=== PATIENT | male | born 1955 | race Caucasian/White ===

== ENCOUNTER 2018-10-09 13:30 | Outpatient (REF) | payer BC, SELFPAY ==
[2018-10-09 20:11] LABS: Anion Gap 9.3 mmol/L (3-11); BUN 12 mg/dL (7-18); CO2 26.7 mmol/L (21.0-32.0); CREATININE 1.04 mg/dL (0.70-1.30); Calcium 9.1 mg/dL (8.5-10.1); Chloride 106 mmol/L (98-107); Cholesterol 156 mg/dL (50-200); Glucose 91 mg/dL (70-100); HDL Cholesterol 66 mg/dL (40-60); LDL CHOLESTEROL 79 mg/dL (<100); Potassium 3.8 mmol/L (3.5-5.1); Sodium 142 mmol/L (136-145); Triglyceride 48 mg/dL (30-150)
== END 2018-10-09 13:50 ==
LOC: NCHCN 13:30
PROVIDERS: PCP Family Medicine; Visit Provider Family Medicine
DX: I10 Essential (primary) hypertension (principal); Z00.00 Encounter for general adult medical examination without abnormal findings
CPT/HCPCS: 80048; 80061; 83721

== ENCOUNTER 2018-10-30 09:23 | Outpatient (CLI) | payer BC, SELFPAY ==
--- NOTE | 2018-10-30 10:00 | DI.CTLCSR_ITS ---
SYMPTOM/DIAGNOSIS: TOBACCO DEPENDENCY, F17.209, SCREENING, [facility], Z00.00 LOW DOSE SCREENING CHEST CT: The study was carried out according to the usual protocol. There are emphysematous changes in the lungs. No infiltrate or mass is identified. There is no pleural effusion. There is nothing to suggest hilar or mediastinal adenopathy. The heart is not enlarged. Coronary artery calcification is demonstrated. There is no pericardial effusion. SUMMARY: There is evidence of COPD. No pulmonary nodule or mass is identified. Lung RADS, category 1. Routine follow up screening is recommended at annual intervals. Lung-RAD Category: Lung RADS Category 1- Negative
--- NOTE | 2018-10-30 10:30 | DI.US_ITS ---
SYMPTOMS/DIAGNOSIS: TOBACCO DEPENDENCY, F17.209, SCREENING FOR ABDOMINAL AORTIC ANEURYSM, [facility], Z00.00 LIMITED ABDOMINAL ULTRASOUND FOR EVALUATION OF THE ABDOMINAL AORTA: The proximal aorta measures 2.9 x 2.3 cm, the mid aorta 2.5 x 2.1 cm, the distal aorta 1.7 x 1.8 cm. The left iliac measures 1.6 x 1.1 cm, the right iliac 1.5 x 1.2 cm. The vena cava is normal. SUMMARY: No evidence of an aortic aneurysm.
== END 2018-10-30 09:43 ==
PROVIDERS: PCP Family Medicine; Visit Provider Family Medicine
DX: Z00.00 Encounter for general adult medical examination without abnormal findings (principal); Z12.2 Encounter for screening for malignant neoplasm of respiratory organs; F17.200 Nicotine dependence, unspecified, uncomplicated; Z13.6 Encounter for screening for cardiovascular disorders; J44.9 Chronic obstructive pulmonary disease, unspecified
CPT/HCPCS: 76706; G0297

== ENCOUNTER 2020-12-08 20:27 | Outpatient (REF) | payer MEDICARE, SELFPAY ==
[2020-12-08 20:39] LABS: Anion Gap 12.2 mmol/L (3-11); BUN 18 mg/dL (7-18); CO2 25.8 mmol/L (21.0-32.0); CREATININE 1.1 mg/dL (0.70-1.30); Calcium 9.7 mg/dL (8.5-10.1); Chloride 104 mmol/L (98-107); Glucose 112 mg/dL (74-106); Sodium 142 mmol/L (136-145)
== END 2020-12-08 20:28 | disposition home or self-care (01) ==
LOC: NCHCN 20:27
PROVIDERS: PCP Family Medicine; Visit Provider Family Medicine
DX: I10 Essential (primary) hypertension (principal)
CPT/HCPCS: 80048

== ENCOUNTER 2020-12-21 01:09 | Outpatient (CLI) | payer MEDICARE, SELFPAY ==
--- NOTE | 2020-12-21 11:00 | DI.CTLCSR_ITS ---
EXAM: CT CHEST LUNG CANCER SCREEN CLINICAL HISTORY: SCREENING FOR LUNG CA, CURRENT SMOKER, F17.210 TECHNIQUE: CT examination of the chest was performed utilizing low-dose lung cancer screening protoc ol. COMPARISON: CT CT CHEST LUNG CANCER SCREEN from 10/30/2018 FINDINGS: Images obtained through the upper abdomen show unremarkable appearance of visualized portions of the liver and spleen with an incidental calcified splenic granuloma.. There is no mediastinal or hilar adenopathy. Mediastinal vascular structures appear intact by noncon trast criteria. Note is made of coronary artery calcification. Tracheobronchial tree appears intact. No pleural effusion or pleural-based mass. The lungs are predominantly clear. There is an 8 millimeter in mean diameter well-circumscribed nodu le of the right upper lobe, no interval change in appearance comparison with prior CT of October. No additional new nodule identified. IMPRESSION: Stable 8 millimeter mean diameter right upper lobe pulmonary nodule. Lung RADS Cat 2 - Benign Appearance / Behavior: Nodules with a very low likelihood of becoming a clin ically active cancer due to size or lack of growth Continue annual screening with LDCTin 12 months. RADIATION DOSE DELIVERED: LINK-TO-SR Total DLP 125.78mGy.cm Total DLP RADIATION OPTIMIZATION: All CT scans at this facility use at least one of these dose optimization te chniques: automated exposure control; mA and/or kV adjustment per patient size (includes targeted exa ms where dose is matched to clinical indication); or iterative reconstruction.
== END 2020-12-21 01:29 ==
PROVIDERS: PCP Family Medicine; Visit Provider Family Medicine
DX: Z12.2 Encounter for screening for malignant neoplasm of respiratory organs (principal); F17.210 Nicotine dependence, cigarettes, uncomplicated; R91.1 Solitary pulmonary nodule
CPT/HCPCS: 71271

== ENCOUNTER 2022-11-07 14:50 | Outpatient (REF) | payer MEDICARE, SELFPAY ==
[2022-11-07 16:14] LABS: Hemoglobin A1C 5.9 % (<5.7)
[2022-11-07 18:35] LABS: Anion Gap 9.9 mmol/L (3-11); BUN 12 mg/dL (7-18); CO2 27.1 mmol/L (21.0-32.0); CREATININE 0.9 mg/dL (0.70-1.30); Calcium 9.6 mg/dL (8.5-10.1); Calculated LDL 93 mg/dL (<100); Chloride 105 mmol/L (98-107); Cholesterol 166 mg/dL (<200); Estimated GFR 92.45 (mL/min/1.73m2); Glucose 107 mg/dL (74-106); HDL Cholesterol 62 mg/dL (40-60); Potassium 3.6 mmol/L (3.5-5.1); Sodium 142 mmol/L (136-145); Triglyceride 59 mg/dL (<150)
== END 2022-11-07 14:51 | disposition home or self-care (01) ==
LOC: NCHCN 14:50
PROVIDERS: PCP Family Medicine; Visit Provider Family Medicine
DX: R73.03 Prediabetes (principal); Z00.00 Encounter for general adult medical examination without abnormal findings
CPT/HCPCS: 80048; 80061; 83036

== ENCOUNTER 2022-11-21 01:35 | Outpatient (CLI) | payer MEDICARE, SELFPAY ==
--- NOTE | 2022-11-21 | DI.CTLCSR_ITS ---
Exam(s) CT CHEST LUNG CANCER SCREEN EXAM: CT CHEST LUNG CANCER SCREEN CLINICAL HISTORY: SMOKER F17.210, SCREENING FOR LUNG CANCER. TECHNIQUE: Imaging Protocol: Low Dose Technique CONTRAST MATERIAL: None COMPARISON: CT CT CHEST LUNG CANCER SCREEN from 12/21/2020 FINDINGS: CHEST: LUNGS: Again noted is the 8 millimeter right upper lobe nodule, unchanged. No new additional right l ann nodules.. There are no confluent infiltrates. No significant left lung nodules. No pleural eff usions on either side. MEDIASTINUM: There is no obvious hilar nor mediastinal adenopathy. CARDIAC: Heart size is normal. There is no pericardial effusion.Caliber of the thoracic aorta is wit hin normal limits. OTHER: OSSEOUS: No significant osseous lesions.No fractures.. x IMPRESSION: 1. Continued stable appearance of the solitary 8 millimeter nodule in the right upper lobe. No new n odules. No infiltrates. No pleural effusions. 2. No obvious intrathoracic adenopathy 3. Lung RADS Cat 2 - Benign Appearance / Behavior: Nodules with a very low likelihood of becoming a c linically active cancer due to size or lack of growth Lung-RADS 1.0 CATEGORIES: Category 0 - Prior chest CT exam(s) being located for comparison. Category 1 - Annual screening in 12 months. No nodules or definitely benign nodules. Category 2 - Annual screening in 12 months. Benign appearance. Nodules with low likelihood of becomin g active cancer. Category 3 - 6-month follow-up. Probably benign. Short-term follow-up suggested. Nodules with low lik elihood of becoming active cancer. Category 4A - 3-month follow-up and CT/PET if >8 mm in size. Suspicious finding. Findings which requi re additional testing. Category 4B - Findings which require additional testing and tissue sampling. Category 4X - Category 3 or 4 nodules with additional features or imaging findings that increases the suspicion of malignancy. Modifier S- Potentially clinically significant findings (non lung cancer) RADIATION DOSE DELIVERED: 94.41mGy.cm Total DLP DATA REPOSITORY: All CT scans at this facility are submitted to the National Radiology Data Registry (NRDR) Dose Index Registry (DIR) with the [employer] (ACR). RADIATION OPTIMIZATION: All CT scans at this facility use at least one of these dose optimization te chniques: automated exposure control; mA and/or kV adjustment per patient size (includes targeted exa ms where dose is matched to clinical indication); or iterative reconstruction.
== END 2022-11-21 01:55 ==
LOC: DI 01:36
PROVIDERS: PCP Family Medicine; Visit Provider Family Medicine
DX: Z12.2 Encounter for screening for malignant neoplasm of respiratory organs (principal); F17.210 Nicotine dependence, cigarettes, uncomplicated; R91.1 Solitary pulmonary nodule
CPT/HCPCS: 71271

== ENCOUNTER → 2023-10-04 12:26 | Outpatient (BNVA) | payer MEDICARE, SELFPAY | PROVIDERS: PCP Family Medicine; Referring Provider Family Medicine; Visit Provider Student in an Organized Health Care Education/Training Program | DX: R10.31 Right lower quadrant pain (principal); K46.9 Unspecified abdominal hernia without obstruction or gangrene; Z86.010 Personal history of colon polyps | CPT/HCPCS: 99203 ==

== ENCOUNTER → 2023-10-25 00:39 | Outpatient (CLI) | payer MEDICARE, SELFPAY ==
[2023-10-25] MEDS: Barium Sulfate 2% W/V-Berry Smoothie 450 ML BTL PO ×2 (07:34→07:35)
[2023-10-25 07:42] LABS: CREATININE 1.1 mg/dL (0.70-1.30); Estimated GFR 72.22 (mL/min/1.73m2)
[2023-10-25] MEDS: Normal Saline - Diluent 50 ML VIAL IJ (09:30)
[2023-10-25] MEDS: Omnipaque 350 MG/ML 500 ML BTL-Imaging package 100 ML IJ (09:31)
--- NOTE | 2023-10-25 09:40 | DI.CT_ITS ---
Exam(s) CT ABDOMEN PELVIS W EXAM: CT ABDOMEN PELVIS W CLINICAL HISTORY: RT inguinal pain for 1 month,? hernia,r10.31. TECHNIQUE: Imaging Protocol: Axial computed tomography images with coronal and sagittal reformatted images were created and reviewed CONTRAST MATERIAL: Intravenous: Omnipaque 350 Contrast volume:100 ml Oral: yes COMPARISON: No exams were available for comparison FINDINGS: ABDOMEN and PELVIS: Lung Bases: No acute findings. Liver: Normal density. No measurable mass. Gallbladder and biliary tract: No radiodense calculus or dilation. Pancreas: Normal density. No abnormal calcifications or inflammatory process. No evidence of mass. Spleen: Normal. Kidneys: Normal size, contour and axis. No radiodense stones. No obstructive uropathy. No suspicious masses seen. Adrenal glands: No masses seen. Vasculature: Abdominal aorta non-dilated. Soft tissues: Minimal amount of fat extends into the right inguinal canal. Bladder: Mild diffuse wall thickening. No calculi.No focal mass. Bowel: No obstruction. No bowel wall thickening. Appendix normal.Moderate to increased quantity of stool. Peritoneal cavity: No ascites. No focal collection or mesenteric inflammatory response. Bones: Unremarkable for age. Reproductive organs: Within normal limits. Lymph nodes: Unremarkable. IMPRESSION:: Minimal amount of fat exceed seen ascending into the right inguinal canal Mild diffuse bladder wall thickening. RADIATION DOSE DELIVERED: 1,095.32mGy.cm Total DLP DATA REPOSITORY: All CT scans at this facility are submitted to the National Radiology Data Registry (NRDR) Dose Index Registry (DIR) with the [employer] (ACR). RADIATION OPTIMIZATION: All CT scans at this facility use at least one of these dose optimization te chniques: automated exposure control; mA and/or kV adjustment per patient size (includes targeted exa ms where dose is matched to clinical indication); or iterative reconstruction.
== END ==
PROVIDERS: PCP Family Medicine; Visit Provider Student in an Organized Health Care Education/Training Program
DX: Z01.818 Encounter for other preprocedural examination (principal); R10.31 Right lower quadrant pain
CPT/HCPCS: 74177; 82565

== ENCOUNTER 2023-11-01 10:10 | Outpatient (REF) | payer MEDICARE, SELFPAY ==
[2023-11-01 15:58] LABS: Anion Gap 12.6 mmol/L (3-11); BUN 22 mg/dL (7-18); CO2 27.4 mmol/L (21.0-32.0); CREATININE 1.1 mg/dL (0.70-1.30); Calcium 9.8 mg/dL (8.5-10.1); Chloride 105 mmol/L (98-107); Estimated GFR 72.22 (mL/min/1.73m2); Glucose 105 mg/dL (74-106); Potassium 3.7 mmol/L (3.5-5.1); Sodium 145 mmol/L (136-145)
[2023-11-01 17:36] LABS: Hemoglobin A1C 5.8 % (<5.7)
== END 2023-11-01 10:11 | disposition home or self-care (01) ==
LOC: NCHCN 10:10
PROVIDERS: PCP Family Medicine; Visit Provider Family Medicine
DX: R73.03 Prediabetes (principal)
CPT/HCPCS: 80048; 83036

== ENCOUNTER → 2023-11-14 12:01 | Outpatient (BNVA) | payer MEDICARE, SELFPAY | PROVIDERS: PCP Family Medicine; Referring Provider Family Medicine; Visit Provider Student in an Organized Health Care Education/Training Program | DX: K46.9 Unspecified abdominal hernia without obstruction or gangrene (principal) | CPT/HCPCS: 99213 ==

== ENCOUNTER 2023-11-20 10:44 | Outpatient (CLI) | payer MEDICARE, SELFPAY ==
[2023-11-20 11:05] VITALS: BP 136/85; PULSE 61; RESP 18; TEMP 36.5; O2SAT 97
[2023-11-20] MEDS: Lactated Ringers 1,000 ML 80 ML IV (11:23)
--- NOTE | 2023-11-20 11:47 | W.ANESPRE ---
General Info Date of Service Date Performed: 11/20/23 Height: 5 ft 7 in Weight: 96.5 kg Body Mass Index (BMI): 33.3 Surgical Procedure: Operation Date: 11/20/23 12:50 Proposed Procedure Side Surgeon p Colonoscopy Cornelius Hester MD Actual Procedure Side Surgeon p Colonoscopy Not Applicable Cornelius Hester MD Meds Allergies and Home Medications Allergies Allergy/AdvReac Type Severity Reaction Status Date / Time hydrochlorothiazide Allergy rash Verified 11/20/23 11:03 Home Medication Medication Instructions Recorded lisinopril 20 mg tablet 40 mg PO DAILY 01/28/13 amlodipine 10 mg tablet 10 mg PO DAILY 10/08/13 chlorthalidone 25 mg tablet 12.5 mg PO DAILY 06/26/16 bisacodyl 5 mg tablet,delayed 5 mg PO ONCE colonscopy bowel prep 10/04/23 release (Dulcolax (bisacodyl)) #4 tabs polyethylene glycol 3350 17 238 g PO ONCE colonoscopy prep 10/04/23 gram/dose oral powder #238 grams Current Visit Medications: Current Medications Generic Name Dose Route Start Last Admin Trade Name Freq PRN Reason Stop Dose Admin Ringer's Solution 1,000 mls @ 80 mls/hr 11/20/23 11:25 11/20/23 11:23 IV 12/20/23 11:24 80 mls/hr INFUSION SHIREEN Administration IV Miscellaneous Supplies 1 each 11/20/23 11:25 Iv Access IV 12/20/23 11:24 DIRECTED SHIREEN Sodium Chloride 0 ml 11/20/23 11:22 Normal Saline Flush 10 Ml Syr IVP 12/20/23 11:21 PRN PRN Sodium Chloride 0 ml 11/20/23 20:00 Normal Saline Flush 10 Ml Syr IVP 12/20/23 19:59 BID SHIREEN Sodium Chloride 0 ml 11/20/23 11:22 Normal Saline 10 Ml Vial IJ 12/20/23 11:21 DIRECTED PRN PFSH Active Problems Active Problems: Problem Status Onset Code Right inguinal pain R10.31 Umbilical hernia K42.9 Right bundle branch block I45.10 Psoriasis L40.9 Right hydrocele N43.3 Medical History Medical History History of anxiety Gout Tubular adenoma of colon (12/18/16) Obesity HTN (hypertension) Tobacco dependence Surgical History Surgical History Repair of umbilical hernia (04/10/17) Colonoscopy - MAC (12/18/16) Tobacco Smoking/Tobacco Use Status: Current every day Tobacco Type: cigarettes Alcohol Alcohol Intake: current Alcohol intake frequency: a few times a week Substance Use Substance use: Never Substance use type: does not use Vital Signs and Lab Results Vital Signs Most Recent Vital Signs in EMR: Most Recent Vital Signs Temp Pulse Resp BP Pulse Ox 36.5 C 61 18 136/85 97 11/20/23 11:05 11/20/23 11:05 11/20/23 11:05 11/20/23 11:05 11/20/23 11:05 Lab Results Blood Type / Crossmatch: No Data to Display Complete Blood Count: No Data to Display Complete Metabolic Panel: Sodium 145 mmol/L (136-145) 11/01/23 09:50 Potassium 3.7 mmol/L (3.5-5.1) 11/01/23 09:50 Chloride 105 mmol/L (98-107) 11/01/23 09:50 Carbon Dioxide 27.4 mmol/L (21.0-32.0) 11/01/23 09:50 BUN 22 mg/dL (7-18) H 11/01/23 09:50 Creatinine 1.1 mg/dL (0.70-1.30) 11/01/23 09:50 Est GFR (CKD-EPI 2020) 72.22 (mL/min/1.73m2) 11/01/23 09:50 Calcium 9.8 mg/dL (8.5-10.1) 11/01/23 09:50 Glucose 105 mg/dL (74-106) 11/01/23 09:50 Hemoglobin A1c 5.8 % (<5.7) H 11/01/23 09:50 Liver Function Panel: No Data to Display Coagulation Panel: No Data to Display Cardiac Panel: No Data to Display Arterial Blood Gas: No Data to Display Venous Blood Gas: No Data to Display Pancreas Panel: No Data to Display Thyroid Panel: No Data to Display Infectious Disease: No Data to Display Blood Cultures: No Data to Display Toxicology Panel: No Data to Display Anesthesia Assessment and Plan Anesthesia History Personal History: No History of Anesthesia Complications Family History: No Family History of Anesthesia Complications Exercise Tolerance Exercise Tolerance: Metabolic Equivalents>4 Pertinent Negatives Pertinent Negatives: No Symptoms of GERD and No Major Cardiovascular Symptoms or Complaints Cardiac & Pulmonary Exam Cardiac Exam: Normal S1/S2 Heart Sounds Pulmonary Exam: Other (Diminished) Implantable Cardiac Device Does patient have a Pacemaker or an ICD?: No Airway Exam Known Difficult Airway: No Mallampati Class: 3 Mouth Opening: Normal (> 3cm) Thyromental Distance: Greater than 3 cm Neck Range of Motion: Full ROM Neck Circumference: Normal Teeth Condition: Generalized Poor Dentition ASA Classification ASA Score: ASA 2 Emergency Case?: No NPO Status NPO Status: NPO Clears >2 hours, Solids >8 hours Anesthesia Plan Resuscitation Status: Full Code Anesthesia Technique: General Anesthesia Airway Planned: Natural Airway Monitors Used: Standard Monitors
[2023-11-20 11:49] VITALS: BMI 33.3
--- NOTE | 2023-11-20 12:06 | W.COLOREPORT ---
Date of service: 11/20/23 Time of Service: 12:49 Colonoscopy Report Procedure Description: PROCEDURES PERFORMED: 1. Colonoscopy with hot snare polypectomy x 1 2. cold forceps polypectomy 3. Cold forceps biopsy x 2 PREOPERATIVE DIAGNOSIS: Surveillance colonoscopy POSTOPERATIVE DIAGNOSIS: Colon polyps, diverticulosis SURGEON: Thu Hester MD INDICATION for procedure: The patient is a 68-year-old man due for surveillance colonoscopy because of history of large/advanced adenomatous polyps being removed. He has no symptoms and no significant family history. FINDINGS: In the cecum a small 2-3 mm sessile polyp was removed with cold forceps technique right near the appendix. Near the terminal ileum is a large(15-20mm) pedunculated round piece of tissue that is either a large lobe of the terminal ileum or possibly lipoma. I do not feel this is an adenomatous polyp but I took large bites of this tissue with cold forceps technique and sent it as cecum biopsy to decipher if this is a polyp that warrants snare. In the ascending colon, within 1 or 2 folds of the ileocecal valve is another apparent where lipoma and it was also biopsied separately as ascending colon biopsy. 1 fold above the ileocecal valve, on the same side, is an obvious sessile polyp which is in the same location as tattoo sites from prior polypectomy. I removed this with snare technique and then used the tip of the hot snare to ablate the perimeter and base of the polypectomy site. In the sigmoid colon another 2-3 mm sessile polyp was removed cold forceps technique. There are diverticular changes in the left colon but no active diverticulitis, stricture or noticeable fibrosis. SURVEILLANCE interval/FOLLOW-UP: Pending path results. I think at minimum, the ascending colon polypectomy site should be re-evaluated in 6 to 12 months to ensure complete and adequate resection of the polyp considering this is the same location that it was removed from before judging by the tattoo. The biopsy sites might warrant reassessment depending on the path results. SPECIMENS: yes EBL: Minimal COMPLICATIONS: None QUALITY of prep: Excellent Procedure in detail: The patient gave written consent and was in agreement with the indications, the potential risks as well as the benefits of the procedure. They were taken to the endoscopy suite and laid in the left lateral decubitus position. A timeout was performed and anesthesia was administered which was tolerated well. I started the procedure. Digital rectal and visual examination was performed and grossly within normal limits. A well-lubricated flexible colonoscope was then introduced and passed without any notable difficulty all the way to the cecum identified by the ileocecal valve and the appendiceal orifice. The scope was then slowly withdrawn with the above-noted findings. The patient tolerated the procedure well and was taken to the PACU in hemodynamically stable condition.
--- NOTE | 2023-11-20 12:17 | BOWEL_PTH ---
PATIENT: Markie Lam LOC: [facility] U#:[id number] AGE/SX: 68/M ROOM: RE11/20/[address]: Cornelius Hester : 1955 BED: DIS: 11/20/2023 SPEC #: [id number] RECD: 11/20/23 14:42 STATUS: CAROL REQ #: [id number] CULLEN: 11/20/23 12:[address]: Cornelius Hester DEPT: Surgical Specimen RECD BY: Desire Anderson ENTERED: 11/20/23 14:42 SP TYPE: Bowel OTHR DR: Klever Saldivar Tissues: 1 - BIOPSY BOWEL 2 - BIOPSY BOWEL 3 - BIOPSY BOWEL 4 - BIOPSY BOWEL 5 - BIOPSY BOWEL Procedures: GROSS AND MICRO LEVEL 4 Comments: [id number] @ Originally on account #[id number] Req #[id number]
[2023-11-20 12:47] VITALS: BP 92/65; PULSE 65; RESP 18; TEMP 36.1; O2SAT 94
--- NOTE | 2023-11-20 12:55 | W.PM.DSUDISC ---
Date of service: 11/20/23 Time of Service: 12:55 Discharge Plan Disposition Patient Disposition: Home Condition: Good Discharge Details Attending Provider: Cornelius Hester Primary Care Provider: Klever Saldivar Home Meds and New Rx's Prescriptions: No Action polyethylene glycol 3350 17 gram/dose powder 238 g PO ONCE Qty: 238 0RF Rx Instructions: take per colonoscopy instructions bisacodyl [Dulcolax (bisacodyl)] 5 mg tablet,delayed release (DR/EC) 5 mg PO ONCE Qty: 4 0RF Rx Instructions: take per colonoscopy instructions lisinopril 20 MG tablet 40 mg PO DAILY amlodipine 10 MG tablet 10 mg PO DAILY chlorthalidone 25 MG tablet 12.5 mg PO DAILY Diclofenac Sodium [Diclofenac Sodium ER] 100 MG TAB.ER.24H 100 mg PO DAILY Qty: 30 0RF Discharge Instructions Additional Instructions: FINDINGS: There is recurrent growth of your polyps in your colon. They were again resected today. These are advanced polyps and are high risk for becoming colon cancer. I recommend a repeat colonoscopy in 6 to 12 months to make sure that these polyps are not growing back. Rechecking sooner would be too soon. If we let it go more than 12 months, they may grow back large again and then be difficult to destroy. Once again seen was diverticular disease in your colon which is a benign, common disease and nothing needs to be done about it. This was seen on your last colonoscopies. Activity:: Activity as Tolerated Diet:: As Tolerated
--- NOTE | 2023-11-20 12:59 | W.ANESPOSTOP ---
Postoperative Evaluation Date, Time and Location Date Performed: 11/20/23 Time Performed: 13:00 Patient Location: Day Surgery Unit Vital Signs Most Recent Imported Vital Signs: Most Recent Vital Signs Temp Pulse Resp BP Pulse Ox 36.1 C L 65 18 92/65 L 94 11/20/23 12:47 11/20/23 12:47 11/20/23 12:47 11/20/23 12:47 11/20/23 12:47 Pain Score Most Recent Pain Score: Most Recent Pain Score Pain Level 0 11/20/23 12:47 Assessment Mental Status: Awake (Alert & Oriented to Patient Baseline) Airway and Respiratory Function: Patent airway with normal (patient baseline) respiratory exam Cardiovascular Function: Hemodynamically Stable Hydration Status: Adequately Hydrated Nausea & Vomiting: No Nausea or Vomiting Pain: Pt. Denies Any Pain Peripheral Nerve Block: Patient did not receive a nerve block
[2023-11-20 13:22] VITALS: BP 133/109; PULSE 63; RESP 16; TEMP 36.4; O2SAT 97
[2023-11-20 13:28] VITALS: BP 147/95
== END 2023-11-20 13:46 | disposition home or self-care (01) ==
PROVIDERS: PCP Family Medicine; Visit Provider Student in an Organized Health Care Education/Training Program
PROC: 0DJD8ZZ Inspection of Lower Intestinal Tract, Via Natural or Artificial Opening Endoscopic (ICD-10-PCS; CPT 45378; principal; 2023-11-20 12:45)
DX: Z12.11 Encounter for screening for malignant neoplasm of colon (principal); D12.0 Benign neoplasm of cecum; Z86.010 Personal history of colon polyps; K57.30 Diverticulosis of large intestine without perforation or abscess without bleeding; D37.4 Neoplasm of uncertain behavior of colon; K63.89 Other specified diseases of intestine
CPT/HCPCS: 45385; 45380; 00123; 88305; J2001; J2704

== ENCOUNTER → 2023-11-23 00:09 | Outpatient (CLI) | payer MEDICARE, SELFPAY ==
--- NOTE | 2023-11-23 | DI.CTLCSR_ITS ---
Exam(s) CT CHEST LUNG CANCER SCREEN EXAM: CT CHEST LUNG CANCER SCREEN CLINICAL HISTORY: screening for lung ca, current smoker, F17.210 TECHNIQUE: Imaging Protocol: Axial computed tomography images with coronal and sagittal reformatted images were created and reviewed COMPARISON: CT CT CHEST LUNG CANCER SCREEN from 10/30/[address] CHEST LUNG CANCER SCREEN from 11/21/[address] ABDOMEN PELVIS W from 10/25/2023 FINDINGS: Tracheobronchial tree: Patent where visualized. Pulmonary parenchyma: No consolidation or dominant measurable mass. No architectural distortion. Lung Nodules: There is a nodule in the medial aspect of the right upper lobe again seen measuring 9.1 mm (series 6, image 141). This compares to 8 mm on the prior examination. No new pulmonary nodules are present. Mediastinum and Dennise: No dominant adenopathy or fluid collection. The esophagus is unremarkable. Thyroid gland: Unremarkable. Lymph nodes: Unremarkable. Pleura: No effusion or pneumothorax. Heart: The heart is not dilated. Coronary artery calcification is present. No pericardial effusion. Aorta: Thoracic aorta non-dilated.Atherosclerotic calcification is present. Upper abdomen: Unremarkable. Soft Tissues: Bilateral gynecomastia. Bones: Within normal limits for the patient's age. IMPRESSION: 1. Solitary right upper lobe pulmonary nodule measuring 9.1 mm. This compares to 8 mm on the prior e xamination. 2. No new pulmonary nodules. Lung RADS Cat 4B - Suspicious: Findings for which additional diagnostic testing and/or tissue samplin g is recommended Lung-RADS 1.0 CATEGORIES: Category 0 - Prior chest CT exam(s) being located for comparison. Category 1 - Annual screening in 12 months. No nodules or definitely benign nodules. Category 2 - Annual screening in 12 months. Benign appearance. Nodules with low likelihood of becomin g active cancer. Category 3 - 6-month follow-up. Probably benign. Short-term follow-up suggested. Nodules with low lik elihood of becoming active cancer. Category 4A - 3-month follow-up and CT/PET if >8 mm in size. Suspicious finding. Findings which requi re additional testing. Category 4B - Findings which require additional testing and tissue sampling. Suspicious finding. Category 4X - Category 3 or 4 nodules with additional features or imaging findings that increases the suspicion of malignancy. Modifier S- Potentially clinically significant finding. (Non lung cancer) Unexpected findings RADIATION DOSE DELIVERED: Total DLP Total DLP DATA REPOSITORY: All CT scans at this facility are submitted to the National Radiology Data Registry (NRDR) Dose Index Registry (DIR) with the [employer] (ACR). RADIATION OPTIMIZATION: All CT scans at this facility use at least one of these dose optimization te chniques: automated exposure control; mA and/or kV adjustment per patient size (includes targeted exa ms where dose is matched to clinical indication); or iterative reconstruction.
== END ==
PROVIDERS: PCP Family Medicine; Visit Provider Family Medicine
DX: Z12.2 Encounter for screening for malignant neoplasm of respiratory organs (principal); F17.210 Nicotine dependence, cigarettes, uncomplicated; R91.1 Solitary pulmonary nodule
CPT/HCPCS: 71271

== ENCOUNTER 2024-11-04 15:25 | Outpatient (REF) | payer MEDICARE, SELFPAY ==
[2024-11-04 16:38] LABS: Anion Gap 10.1 mmol/L (3-11); BUN 11 mg/dL (7-18); CO2 28.9 mmol/L (21.0-32.0); CREATININE 1.1 mg/dL (0.70-1.30); Calcium 9.6 mg/dL (8.5-10.1); Chloride 105 mmol/L (98-107); Estimated GFR 71.77 (mL/min/1.73m2); Glucose 109 mg/dL (74-106); Potassium 3.8 mmol/L (3.5-5.1); Sodium 144 mmol/L (136-145)
== END 2024-11-04 15:26 | disposition home or self-care (01) ==
LOC: NCHCN 15:25
PROVIDERS: PCP Student in an Organized Health Care Education/Training Program; Visit Provider Student in an Organized Health Care Education/Training Program
DX: I10 Essential (primary) hypertension (principal)
CPT/HCPCS: 80048

== ENCOUNTER 2024-11-20 01:43 | Outpatient (CLI) | payer MEDICARE, SELFPAY ==
--- NOTE | 2024-11-20 | DI.CT_ITS ---
Exam(s) CT CHEST WO EXAM: CT CHEST WO CLINICAL HISTORY: R91.1 Solitary pulmonary nodule, PT had Cat 4B nodule on 11-23-23 LDCT, refer TECHNIQUE: Imaging Protocol: Axial computed tomography images with coronal and sagittal reformatted images were created and reviewed. Computer aided detection (CAD) was utilized. CONTRAST MATERIAL: Intravenous: Omnipaque 350 Contrast volume:structured data ml. COMPARISON: CT CT CHEST LUNG CANCER SCREEN from 10/30/[address] CHEST LUNG CANCER SCREEN from 12/21/[address] CHEST LUNG CANCER SCREEN from 11/21/[address] CHEST LUNG CANCER SCREEN from 11/23/2023 FINDINGS: Pulmonary parenchyma: No consolidation. there is a circumscribed ovoid nodule in the medial right up per lobe which has been present since the 2019 exam. It is measured today at 9.5 x 6.4 millimeters. Remeasuring the nodule on the 2019 exam it measures 8.8 x 6.4 cm. No new pulmonary nodules. Tracheobronchial tree: No bronchiectasis or mucous plugging. Mediastinum and Dennise: No dominant adenopathy or fluid collection. Pleura: No effusion. No pneumothorax. Heart: The heart is not dilated. Mild coronary artery calcifications are seen. Aorta: Thoracic aorta non-dilated. Mild atherosclerotic changes. Pulmonary arteries: No gross evidence of emboli. Upper abdomen: No acute findings. Bones: Degenerative changes in the spine. Soft tissues: Unremarkable. IMPRESSION: The nodule in the right upper lobe appear stable from 2019. No new findings. RADIATION DOSE DELIVERED: Total DLP DATA REPOSITORY: All CT scans at this facility are submitted to the National Radiology Data Registry (NRDR) Dose Index Registry (DIR) with the [employer] (ACR). RADIATION OPTIMIZATION: All CT scans at this facility use at least one of these dose optimization te chniques: automated exposure control; mA and/or kV adjustment per patient size (includes targeted exa ms where dose is matched to clinical indication); or iterative reconstruction.
== END 2024-11-20 02:03 ==
LOC: DI 01:43
PROVIDERS: PCP Student in an Organized Health Care Education/Training Program; Visit Provider Student in an Organized Health Care Education/Training Program
DX: R91.1 Solitary pulmonary nodule (principal)
CPT/HCPCS: 71250

== ENCOUNTER → 2025-01-01 08:47 | Outpatient (BNVA) | payer MEDICARE, SELFPAY | PROVIDERS: PCP Student in an Organized Health Care Education/Training Program; Referring Provider Student in an Organized Health Care Education/Training Program; Visit Provider Physical Therapy Assistant | DX: Z12.11 Encounter for screening for malignant neoplasm of colon (principal); Z86.0101 Personal history of adenomatous and serrated colon polyps; I10 Essential (primary) hypertension; E66.9 Obesity, unspecified ==

== ENCOUNTER 2025-01-16 08:10 | Day surgery (SDC) | payer MEDICARE, SELFPAY ==
--- NOTE | 2025-01-15 19:57 | W.PM.DSUDISC ---
Date of service: 01/16/25 Discharge Plan Disposition Patient Disposition: Home Condition: Good Discharge Details Reason For Visit: screening colonoscopy Attending Provider: Joss Santo Primary Care Provider: Dionte Ricci Home Meds and New Rx's Prescriptions: No Action bisacodyl [Dulcolax (bisacodyl)] 5 mg tablet,delayed release (DR/EC) 5 mg PO ONCE Qty: 4 0RF Rx Instructions: Take per colonoscopy instructions provided by ordering providers office polyethylene glycol 3350 17 gram/dose powder 17 g PO ONCE Qty: 238 0RF Rx Instructions: Take per colonoscopy instructions provided by ordering providers office lisinopril 20 MG tablet 40 mg PO DAILY amlodipine 10 MG tablet 10 mg PO DAILY chlorthalidone 25 MG tablet 12.5 mg PO DAILY Discharge Instructions Instructions: Colon polyps, Diverticulosis Additional Instructions: Markie, was a pleasure meeting you today, and I hope you make a quick recovery after the procedure. Everything went very smoothly. I did find to remove several polyps today. These were all quite small, and all will be sent off to the pathologist. Similar to your previous experience, these will be tested, once we know the nature of these polyps, I will be in touch with recommendations for the timing of your next colonoscopy. At this point, my inclination is to repeat it at 3 years, but lets wait to see what the pathology results are before we make any decisions. As you also know, you have diverticulosis., And I also saw evidence of colon lipomas, which are benign fat tumors that grow within the wall of the large intestine. These do not require any treatment. If you have any questions at all, please do not hesitate to ask, otherwise we will be in touch once the pathology report is available. 1. If tolerated, consume a soft, low fiber diet for 1-2 days. 2[address] Do not drive, drink alcohol, operate machinery, make critical decisions, or do activities that require coordination or balance for 24 hours. 3. Because air was put into your colon during the procedure, expelling air from your rectum (passing gas or farting) is normal. 4. You may not have a bowel movement for 1-3 days because of the colonoscopy prep. This is normal. 5. Go directly to the emergency room if you notice any of the following: Develop chills (warm to touch), or if you have a thermometer and your temperature is above 101 Difficulty breathing or difficultly swallowing Persistent vomiting Severe abdominal pain, other than gas cramps Severe chest pain Black, tarry stools Any bleeding ? exceeding one tablespoon 6. Call your physician if the site where your intravenous was started becomes red, swollen, painful, and warm to touch. 7. Your physician has reviewed your pre-procedure medications. Please continue to take those medications as previously ordered. You will be given specific information/education regarding any changes to your medications before leaving. Activity:: Activity as Tolerated Diet:: As Tolerated Discharge Orders Discharge Orders: Discharge Order (Routine); Ordered 01/15/25 Ordered By: Joss Santo DS: Diagnosis Discharge Diagnosis (1) Encounter for screening colonoscopy: Status: Acute Asessment and Plan: Follow-up on polypectomy results
--- NOTE | 2025-01-15 19:59 | COLE_ITS ---
Date of service: 01/16/25 Time of Service: 11:09 Colonoscopy Report Date of procedure: 01/16/25 Pre-op diagnosis general: screening colonoscopy Post-op diagnosis procedure note: other (Colon polyps, diverticulosis, colon lipomas, segmental colitis associated with diverticulosis) Procedure: colonoscopy with polypectomy Surgeon: Joss Santo Anesthesia Type: General:No Airway Estimated blood loss (mL): 5 Pathology: other (Cecal polyp, polyps from 80, 75, and 50 cm) Complications: None Disposition: same day Indications: Markie is a 69 year old man with a histoty of adeomatous polyps who needs his next screening colonoscopy Prep: Miralax/Dulcolax Procedure Start Time: 10:29 Procedure End Time: 10:50 Retraction Time: 17 Findings: Colon polyps, diverticulosis, segmental colitis associated with diverticulosis, colon lipoma Procedure Description: After the induction of anesthesia, and with the patient in left lateral decubitus position, I began by performing an external anorectal exam.? Perineum and skin were normal, as was the anal verge.? There was no evidence of external hemorrhoids.? Next, I performed a digital rectal exam.? I did not appreciate any abnormal findings.? Next, I advanced a colonoscope into the rectal vault.? I performed retroflexion.? This appeared normal.? Using irrigation, I then advanced the colonoscope beyond the rectal folds and into the sigmoid colon before advancing towards the cecum.? There is extensive cavernous sigmoid diverticulosis. Great care was taken to maintain the true lumen of the colon. There was inflammation of the mucosa consistent with segmental colitis associated with the diverticulosis..? The scope was noted to be in the cecum by identification of the ileocecal valve and appendiceal orifice.? As noted on previous colonoscopies, the ileocecal valve was quite prominent, but the mucosa is totally normal and healthy appearing. There are no evidence of any adenomatous changes here. There was a small adenomatous appearing polyp just adjacent to the ileocecal valve within the cecum. This was less than 0.25 cm. It was flat. It was removed with cold forceps with minimal bleeding. There were a few areas of tattooing in the cecum and ascending colon. Great care was taken to examine these areas, and I saw no evidence of any recurrent pathology here. There is also a large lipoma in the ascending colon. I then began withdrawing the colonoscope using repeated irrigation as necessary for full evaluation of the colonic mucosa. Less than 0.25 cm flat polyps were detected at 80, 75, and 50 cm beyond the anal verge. All of these polyps were removed with cold forceps without any significant issues. Few other areas of colonic tattooing were also observed during withdrawal of the colonoscope. Again, great care was taken to examine these areas, and I saw no evidence of any rectal current pathology here as well. Once the scope was withdrawn to the level of the rectum, great care was taken to examine portions of the rectal folds.? Finally, the scope was withdrawn and the patient was brought to the same-day surgery recovery unit as the anesthetic wore off. ?The findings and instructions were shared with the patient prior to discharge. [place] Bowel Prep [place] Bowel Prep Right Colon: 2 Left Colon: 2 Transverse Colon: 3 Total Score: 7
[2025-01-16 08:25] VITALS: BP 145/94; PULSE 70; RESP 18; TEMP 36.8; O2SAT 95
[2025-01-16] MEDS: Lactated Ringers 1,000 ML 80 ML IV (08:44)
--- NOTE | 2025-01-16 10:07 | ANES.PREOP_ITS ---
General Info Date of Service Date Performed: 01/16/25 Height: 5 ft 7 in Weight: 96.3 kg Body Mass Index (BMI): 33.2 Surgical Procedure: Operation Date: 01/16/25 09:50 Proposed Procedure Side Surgeon p Jane Santo MD Meds Allergies and Home Medications Allergies Allergy/AdvReac Type Severity Reaction Status Date / Time hydrochlorothiazide Allergy rash Verified 01/16/25 08:23 Home Medication ?Medication ?Instructions ?Recorded lisinopril 20 mg tablet 40 mg PO DAILY 01/28/13 amlodipine 10 mg tablet 10 mg PO DAILY 10/08/13 chlorthalidone 25 mg tablet 12.5 mg PO DAILY 06/26/16 bisacodyl 5 mg tablet,delayed 5 mg PO ONCE #4 tabs 01/01/25 release (Dulcolax (bisacodyl)) polyethylene glycol 3350 17 17 g PO ONCE #238 grams 01/01/25 gram/dose oral powder Current Visit Medications: Current Medications Generic Name Dose Route Start Last Admin Trade Name Freq PRN Reason Stop Dose Admin Ringer's Solution 1,000 mls @ 80 mls/hr 01/16/25 06:00 01/16/25 08:44 IV 01/16/25 23:59 80 mls/hr INFUSION SHIREEN Administration IV Miscellaneous Supplies 1 each 01/16/25 06:00 Iv Access IV 01/16/25 23:59 DIRECTED SHIREEN Ondansetron HCl 4 mg 01/15/25 20:00 Ondansetron 4 Mg/2 Ml Vial IVP 02/14/25 19:59 Q4H PRN PRN Nausea / Vomiting Sodium Chloride 0 ml 01/16/25 06:00 Normal Saline Flush 10 Ml Syr IV 01/16/25 23:59 PRN PRN Sodium Chloride 0 ml 01/16/25 06:00 Normal Saline 10 Ml Vial IJ 01/16/25 23:59 DIRECTED PRN Sterile Water 0 ml 01/16/25 06:00 Water,Injection,Sterile 10 Ml Vial IJ 01/16/25 23:59 DIRECTED PRN PFSH Active Problems Active Problems: Problem Status Onset Code Encounter for screening colonoscopy Acute Z12.11 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 History of anxiety Pt. denies Gout Tubular adenoma of colon (12/18/16) Obesity HTN (hypertension) Tobacco dependence Surgical History Surgical History Repair of umbilical hernia (04/10/17) Colonoscopy - MAC (11/2023) 12/18/16 Tobacco Smoking/Tobacco Use Status: Current every day Tobacco Type: cigarettes Alcohol Alcohol Intake: current Alcohol intake frequency: a few times a week Substance Use Substance use: Never Substance use type: does not use Vital Signs and Lab Results Vital Signs Most Recent Vital Signs in EMR: Most Recent Vital Signs Temp Pulse Resp BP Pulse Ox 36.8 C 70 18 145/94 H 95 01/16/25 08:25 01/16/25 08:25 01/16/25 08:25 01/16/25 08:25 01/16/25 08:25 Lab Results Blood Type / Crossmatch: No Data to Display Complete Blood Count: No Data to Display Complete Metabolic Panel: No Data to Display Liver Function Panel: No Data to Display Coagulation Panel: No Data to Display Cardiac Panel: No Data to Display Arterial Blood Gas: No Data to Display Venous Blood Gas: No Data to Display Pancreas Panel: No Data to Display Thyroid Panel: No Data to Display Infectious Disease: No Data to Display Blood Cultures: No Data to Display Toxicology Panel: No Data to Display Anesthesia Assessment and Plan Anesthesia History Personal History: No History of Anesthesia Complications Family History: No Family History of Anesthesia Complications Exercise Tolerance Exercise Tolerance: Metabolic Equivalents>4 Pertinent Negatives Pertinent Negatives: No Symptoms of GERD Cardiac & Pulmonary Exam Cardiac Exam: Normal S1/S2 Heart Sounds Pulmonary Exam: Clear Bilateral Breath Sounds Implantable Cardiac Device Does patient have a Pacemaker or an ICD?: No Airway Exam Known Difficult Airway: No Mallampati Class: 3 Mouth Opening: Normal (> 3cm) Thyromental Distance: Greater than 3 cm Neck Range of Motion: Full ROM Neck Circumference: Normal Teeth Condition: Generalized Poor Dentition ASA Classification ASA Score: ASA 2 Emergency Case?: No NPO Status NPO Status: NPO Clears >2 hours, Solids >8 hours Anesthesia Plan Resuscitation Status: Full Code Anesthesia Technique: General Anesthesia Airway Planned: Natural Airway Monitors Used: Standard Monitors
[2025-01-16 10:09] VITALS: BMI 33.2
--- NOTE | 2025-01-16 10:36 | BOWEL_PTH ---
PATIENT: Markie Lam LOC: [facility] U#:[id number] AGE/SX: 69/M ROOM: RE01/16/[address]: Joss Santo MD : [id number] BED: DIS: 01/16/2025 SPEC #: [id number] RECD: 01/16/25 11:50 STATUS: CAROL REQ #: [id number] CULLEN: 01/16/25 10:[address]: Joss Santo DEPT: Surgical Specimen RECD BY: Desire Anderson ENTERED: 01/16/25 11:52 SP TYPE: Bowel OTHR DR: Dionte Ricci Tissues: 1 - BIOPSY BOWEL 2 - BIOPSY BOWEL 3 - BIOPSY BOWEL 4 - BIOPSY BOWEL Procedures: GROSS AND MICRO LEVEL 4 Comments: [id number]
[2025-01-16 10:59] VITALS: BP 94/67; PULSE 72; RESP 16; TEMP 36.3; O2SAT 92
--- NOTE | 2025-01-16 11:06 | W.ANESPOSTOP ---
Postoperative Evaluation Date, Time and Location Date Performed: 01/16/25 Time Performed: 10:59 Patient Location: Day Surgery Unit Vital Signs Most Recent Imported Vital Signs: Most Recent Vital Signs Temp Pulse Resp BP Pulse Ox 36.3 C L 72 16 94/67 L 92 01/16/25 10:59 01/16/25 10:59 01/16/25 10:59 01/16/25 10:59 01/16/25 10:59 Pain Score Most Recent Pain Score: Most Recent Pain Score Pain Level 0 01/16/25 10:59 Assessment Mental Status: Awake (Alert & Oriented to Patient Baseline) Airway and Respiratory Function: Patent airway with normal (patient baseline) respiratory exam Cardiovascular Function: Hemodynamically Stable Hydration Status: Adequately Hydrated Nausea & Vomiting: No Nausea or Vomiting Pain: Pt. Denies Any Pain Peripheral Nerve Block: Patient did not receive a nerve block
[2025-01-16 11:29] VITALS: BP 144/90; PULSE 67; RESP 18; TEMP 36.7; O2SAT 95
== END 2025-01-16 11:57 | disposition home or self-care (01) ==
LOC: SUR 08:10
PROVIDERS: PCP Student in an Organized Health Care Education/Training Program; Visit Provider Surgery
PROC: 0DJD8ZZ Inspection of Lower Intestinal Tract, Via Natural or Artificial Opening Endoscopic (ICD-10-PCS; CPT 45378; principal; 2025-01-16 09:45)
DX: Z12.11 Encounter for screening for malignant neoplasm of colon (principal); D12.0 Benign neoplasm of cecum; K57.30 Diverticulosis of large intestine without perforation or abscess without bleeding; D17.5 Benign lipomatous neoplasm of intra-abdominal organs; K52.89 Other specified noninfective gastroenteritis and colitis; Z86.0102 Personal history of hyperplastic colon polyps; D12.4 Benign neoplasm of descending colon; D12.5 Benign neoplasm of sigmoid colon
CPT/HCPCS: 45380; 88305; J2704